=== PATIENT | male | born 1985 | race Caucasian/White ===

== ENCOUNTER 2016-09-18 10:23 | Emergency (ER) | payer OTHER ==
[~2016-09-18] VITALS: Ht 182.9 cm; Wt 105.0 kg
[~2016-09-18 10:23] MED LIST: CIPR500T4 PO; MOBI15TA PO; TRAM50 PO
[2016-09-18 10:26] VITALS: BP 138/89; PULSE 80; RESP 16; TEMP 98.1; O2SAT 96
--- NOTE | 2016-09-18 10:59 | PD ---
HPI Chief Complaint: Laceration/Skin Injury Time Seen by Provider: 10:53 Travel History International Travel<30 days: No Contact w/Intl Traveler<30days: No Traveled to known affect area: No History of Present Illness HPI 31-year-old male presents to the emergency room for evaluation of a laceration to his right posterior shoulder that occurred just prior to arrival. 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 Bled a moderate amount. Patient took a shower, put a dressing on, and then came to the emergency room. Last tetanus was 4 years ago. [facility] Social History Alcohol Use: No Tobacco Use: No Substance Use: No Allergies-Medications (Allergen,Severity, Reaction): Coded Allergies: No Known Allergies (Unverified , 09/18/16) Reported Meds & Prescriptions Reported Meds & Active Scripts Active No Active Prescriptions or Reported Medications Review of Systems Except as stated in HPI: all other systems reviewed are Neg Physical Exam Narrative GENERAL: Well-nourished, well-developed male in no acute distress. Afebrile. Ambulatory. SKIN: Warm and dry. There is a superficial 1 cm laceration to the posterior right shoulder. Laceration does not break through the dermis. No bleeding. HEAD: Normocephalic. EYES: No scleral icterus. No injection or drainage. NECK: Supple, trachea midline. No JVD or lymphadenopathy. Data Data Last Documented VS Vital Signs Date Time Temp Pulse Resp B/P Pulse Ox O2 Delivery O2 Flow Rate FiO2 09/18/16 10:26 98.1 80 16 138/89 96 Room Air MDM Medical Decision Making Medical Screen Exam Complete: Yes Emergency Medical Condition: Yes Medical Record Reviewed: Yes Differential Diagnosis Laceration versus abrasion versus infection Narrative Course 31-year-old male presents to the emergency room for evaluation of laceration to his posterior right shoulder that occurred earlier today after presumably being cut on glass. Patient washed it and came to the emergency room. He is up-to- date on tetanus. There is a 1 cm superficial laceration to the right posterior shoulder that does not extend through the dermis. It was thoroughly cleansed and then repaired with Steri-Strips and glue. Patient was discharged with wound care instructions and told to follow up with a primary care physician or return to the emergency room for worsening symptoms. He understands and agrees to this plan. Diagnosis Primary Impression: Laceration Referrals: Primary Care Physician Patient Instructions: General Instructions, Laceration (ED) Additional Instructions: Rest and drink plenty of fluids. Keep wound clean and dry. Do not pick at glue or Steri-Strips, they will follow off on their own. Once they have fallen off, apply triple antibiotic ointment until scab is gone. Follow-up with a primary care physician. Return to the emergency room for worsening symptoms. Scripts No Active Prescriptions or Reported Meds Disposition: 01 DISCHARGE HOME Condition: Stable Annia Dennison Sep 18, 2016 10:59
== END 2016-09-18 11:09 | disposition home or self-care (01) ==
LOC: NEPB 10:23
DX: S41.011A Laceration without foreign body of right shoulder, initial encounter (principal); W25.XXXA Contact with sharp glass, initial encounter; Y93.89 Activity, other specified; Y92.89 Other specified places as the place of occurrence of the external cause; Y99.8 Other external cause status
CPT/HCPCS: 12001